=== PATIENT | male | born 1965 | race African-American/Black ===

== ENCOUNTER 2021-07-11 12:24 | Outpatient (CLI) | payer OTHER | END 2021-07-11 12:25 | disposition home or self-care (01) | LOC: CSHRAD 12:24 | PROVIDERS: ATTEND Psychiatry & Neurology Neurology | DX: Z96.652 Presence of left artificial knee joint (principal); M25.519 Pain in unspecified shoulder; M25.462 Effusion, left knee; M25.862 Other specified joint disorders, left knee | CPT/HCPCS: 72040 ==